=== PATIENT | female | born 2000 | race Caucasian/White ===

== ENCOUNTER 2024-11-18 16:47 | Emergency (ER) | payer OTHER ==
[2024-11-18] MEDS ORDERED: Droperidol 5 MG/2 ML VIAL ONE (17:12)
[2024-11-18 17:57] LABS: #Basophils 0.04 10x3/uL (0.0-0.2); #Eosinophils 0.04 10x3/uL (0.0-0.7); #Monocytes 0.58 10x3/uL (0.11-0.59); #Neutrophils 2.16 10x3/uL (1.40-6.50); %Basophils 0.7 % (0.0-1.0); %Eosinophils 0.7 % (0.0-10.0); %Lymphocytes 47.0 % (21.0-51.0); %Monocytes 10.8 % (0.0-10.0); %Neutrophils 40.4 % (42.0-75.0); Hematocrit 45.4 % (36.0-47.0); Hemoglobin 16.1 g/dL (12.0-16.0); Mean Corpuscular Hemoglobin 32.3 pg (27.0-31.0); Mean Corpuscular Volume 91.2 fL (78.0-98.0); Platelet Count 359 10x3/uL (130-400); Red Blood Cell (RBC) Count 4.98 mill/uL (4.20-5.40); White Blood Cell (WBC) Count 5.36 10x3/uL (4.8-10.8)
[2024-11-18 18:17] LABS: BHCG - Serum Negative (NEGATIVE); Pregs Control Background? CLEAR/WHITE (CLR/WHITE); Pregs Control Bar Appear? YES (CONTROL BAR)
[2024-11-18 18:30] LABS: ALT (SGPT) 57 U/L (Less than 34); AST (SGOT) 75 U/L (11-34); Acetaminophen Less than 10 mcg/mL (Less than 10); Albumin 4.5 g/dL (3.1-4.5); Alkaline Phosphatase 63 U/L (40-110); Anion Gap 20 mmol/L (10-20); BUN (Urea Nitrogen) 7 mg/dL (7.0-18.7); Bilirubin, Total 0.3 mg/dL (0.3-1.2); Calc. Creatinine Clearance 0 mL/min (70-130); Calcium 8.9 mg/dL (7.8-10.44); Carbon Dioxide 22 mmol/L (22-29); Chloride 108 mmol/L (98-107); Globulin 2.6 g/dL (2.4-3.5); Glucose 109 mg/dL (70-105); Lipase 32 U/L (8-78); Magnesium 2.1 mg/dL (1.6-2.6); Potassium 3.3 mmol/L (3.5-5.1); Salicylate Less than 8.0 mg/dL (Less than 8.0); Sodium 147 mmol/L (136-145)
[2024-11-19] MEDS ORDERED: Ketorolac Tromethamine 30 MG (1 mL) VIAL ONE (07:57)
[2024-11-19] MEDS ORDERED: Ondansetron PF 4 MG/2 ML Vial ONE (07:58)
[2024-11-19] MEDS ORDERED: Bacitracin 1 PK ONE (08:25)
[2024-11-19 08:27] LABS: CAUTI Indications for Culture Alt mental st,lethar; Glucose, Urine (Dipstick) Normal (Negative); Leukocyte Negative Leu/uL (Negative); Protein, Urine (Dipstick) Negative (Neg-Trace); Specific Gravity, Urine 1.019 (1.002-1.036); WBC/HPF 0-3 HPF (0-3)
[2024-11-19 08:33] LABS: Bacteria/HPF Rare-Few HPF (None Seen); RBC/HPF 0-3 HPF (0-3)
[2024-11-19 08:34] LABS: Cocaine Metabolite Screen Negative (Negative); THC/Cannabinoid Screen PRELIM POSITIVE (Negative); Tricyclic Screen Negative (Negative); Urine Culture Reflex No No
== END 2024-11-19 09:40 | disposition home or self-care (01) ==
LOC: ERS 16:47
DX: F10.229 Alcohol dependence with intoxication, unspecified (principal); R45.850 Homicidal ideations; F22 Delusional disorders; Y90.0 Blood alcohol level of less than 20 mg/100 ml
CPT/HCPCS: 80053; 80306; 80307; 81001; 83605; 83690; 83735; 84703; 85025; 93005; 96372; 96374; 96375; J1790; J1885; J2060; J2405